=== PATIENT | female | born 1935 | race Caucasian/White ===

== ENCOUNTER 2021-07-29 08:45 | Observation (INO) | payer MEDICARE ==
[~2021-07-29] VITALS: Ht 172.7 cm; Wt 84.5 kg
[2021-07-29 09:34] LABS: HEMOGLOBIN 7.5 gm/dl (12.3-15.3); RED BLOOD COUNT 3.39 M/UL (4.00-5.10); WHITE BLOOD COUNT 5.9 K/UL (4.5-11.0)
[2021-07-29 09:59] LABS: BUN/CREATININE RATIO 15 (0-10)
[2021-07-29] MEDS ORDERED: ZESTRIL40 MG PO (12:19)
[2021-07-29] MEDS ORDERED: CRESTOR5 MG PO (12:19)
[2021-07-29] MEDS ORDERED: GLIPIZIDE XL5 MG PO (12:19)
[2021-07-29] MEDS ORDERED: ARICEPT10 MG PO (12:20)
[2021-07-29] MEDS ORDERED: SEROQUEL25 MG PO (12:20)
[2021-07-29] MEDS ORDERED: ASPIRIN EC81 MG PO (12:45)
[2021-07-30 02:58] LABS: RED BLOOD COUNT 3.19 M/UL (4.00-5.10); WHITE BLOOD COUNT 6.4 K/UL (4.5-11.0)
[2021-07-31 04:21] LABS: HEMOGLOBIN 9.2 gm/dl (12.3-15.3)
[2021-07-31 04:22] LABS: RED BLOOD COUNT 3.9 M/UL (4.00-5.10); WHITE BLOOD COUNT 8.3 K/UL (4.5-11.0)
[2021-07-31] MEDS ORDERED: PROTONIX40 MG PO (08:10)
[2021-07-31] MEDS ORDERED: VITAMIN B-12100 MCG PO (08:10)
[2021-07-31] MEDS ORDERED: LASIX20 MG PO (08:10)
[2021-07-31] MEDS ORDERED: FEOSOL325 MG PO (08:10)
== END 2021-07-31 15:30 | disposition home or self-care (01) ==
LOC: ER1 08:45 → PROG CARE 12:02 → CDU 12:02 → PROG CARE 17:04
PROVIDERS: Nurse Practitioner; Physician Assistant; ADMIT Internal Medicine
DX: D62 Acute posthemorrhagic anemia (principal); K92.2 Gastrointestinal hemorrhage, unspecified; Z20.822 Contact with and (suspected) exposure to COVID-19; I11.0 Hypertensive heart disease with heart failure; I50.31 Acute diastolic (congestive) heart failure; Z66 Do not resuscitate; E11.9 Type 2 diabetes mellitus without complications; E78.5 Hyperlipidemia, unspecified; I44.0 Atrioventricular block, first degree; F03.90 Unspecified dementia, unspecified severity, without behavioral disturbance, psychotic disturbance, mood disturbance, and anxiety; Z79.82 Long term (current) use of aspirin; Z79.84 Long term (current) use of oral hypoglycemic drugs; Z79.899 Other long term (current) drug therapy
CPT/HCPCS: ECHO; 0240U; 36415; 71045; 80048; 80053; 81001; 82550; 82553; 82607; 82728; 82746; 82962; 83540; 83550; 83735; 83880; 84484; 85018; 85025; 85027; 86850; 86900; 86901; 86920; 87086; 93005; 93306; 96374; 96375; 96376; 99285; C9113; G0378; J1756; J1940; J2060; J2405; J7050; P9016

== ENCOUNTER 2021-11-02 21:42 | Emergency (ER) | payer MEDICARE ==
[~2021-11-02 21:42] MED LIST: ARICEPT10 MG PO; ASPIRIN EC81 MG PO; CRESTOR5 MG PO; FEOSOL325 MG PO; GLIPIZIDE XL5 MG PO; LASIX20 MG PO; PROTONIX40 MG PO; SEROQUEL25 MG PO; VITAMIN B-12100 MCG PO; ZESTRIL40 MG PO
[2021-11-02 22:12] LABS: HEMOGLOBIN 12.1 gm/dl (12.3-15.3); RED BLOOD COUNT 4.29 M/UL (4.00-5.10); WHITE BLOOD COUNT 11.3 K/UL (4.5-11.0)
[2021-11-02 22:39] LABS: BUN/CREATININE RATIO 19 (0-10)
== END 2021-11-03 02:34 | disposition home or self-care (01) ==
LOC: ER1 21:42
PROVIDERS: Family Medicine
DX: E11.65 Type 2 diabetes mellitus with hyperglycemia (principal); M51.35 Other intervertebral disc degeneration, thoracolumbar region; N83.202 Unspecified ovarian cyst, left side; K80.80 Other cholelithiasis without obstruction; E11.22 Type 2 diabetes mellitus with diabetic chronic kidney disease; N18.9 Chronic kidney disease, unspecified; F03.90 Unspecified dementia, unspecified severity, without behavioral disturbance, psychotic disturbance, mood disturbance, and anxiety; Z20.822 Contact with and (suspected) exposure to COVID-19
CPT/HCPCS: 0240U; 70450; 71045; 80053; 81001; 82550; 82553; 83605; 83690; 83735; 84484; 85025; 93005; 96374; 99285; J2405